=== PATIENT | female | born 1990 | race Caucasian/White ===

== ENCOUNTER → 2017-02-18 | Outpatient (CLI) | payer OTHER ==
[~2017-02-18] MED LIST: ACYC200O2 PO; ALBU2.5V NEB; AZIT-14 PO; AZIT500T4 PO; CEFD300C2 PO; CHOL200040 PO; CHOL500050 PO; CIPR500T3 PO; CLAR500T3 PO; COLC0.6T37 PO; FAMO20TA7 PO; FERR325T10 PO; FERR325T20 PO; FOLI0.4T2 PO; FURO-92 PO; FURO-93 PO; FURO40TA6 PO; HYDR-3240 PO; HYDR-3307 PO; HYDR200T PO; LEVO750T26 PO; LISI-170 PO; LOSA50TA6 PO; METH2.5T PO; METO25TA35 PO; METO25TA91 PO; MYCO500T3 PO; ONDA4TAB7 PO; OXYB5TAB7 PO; PHEN-494 PO; POTA10TA11 PO; POTA20PA PO; POTA20TA14 PO; POTASSIUM CL ER PO; PRED-402 PO; PRED10TA PO; PRED2.5T PO; PRED20TA PO; PRED5TAB PO; PROC10TA78 PO; WARF10TA6 PO; WARF1TAB7 PO; WARF2.5T73 PO; WARF5TAB7 PO; WARF5TAB7 PO-COUM; warfarin PO
[2017-02-18 10:27] LABS: BLOOD UREA NITROGEN 19 mg/dL (7-18)
== END | disposition home or self-care (01) ==
LOC: LAB 09:56
PROVIDERS: ATTEND Internal Medicine Cardiovascular Disease
DX: I31.9 Disease of pericardium, unspecified (principal)
CPT/HCPCS: 36415; 80048

== ENCOUNTER → 2017-03-11 | Outpatient (CLI) | payer OTHER ==
[~2017-03-11] MED LIST changes: -AZIT-14 PO; +AZIT250T89 PO; -AZIT500T4 PO; +AZIT500T77 PO; -CEFD300C2 PO; +CEFD300C37 PO
[2017-03-11 09:17] LABS: BLOOD UREA NITROGEN 22 mg/dL (7-18)
[2017-03-11 09:28] LABS: ASPARTATE AMINO TRANSFERASE 15 U/L (15-37)
== END | disposition home or self-care (01) ==
LOC: LAB 08:39
PROVIDERS: ATTEND Internal Medicine Rheumatology
DX: M32.14 Glomerular disease in systemic lupus erythematosus (principal); Z79.899 Other long term (current) drug therapy
CPT/HCPCS: 36415; 80053; 81001; 82570; 84156; 84443; 85025; 86140; 86160

== ENCOUNTER 2017-03-14 11:21 | Emergency (ER) | payer OTHER ==
[~2017-03-14] VITALS: Ht 165.1 cm; Wt 101.6 kg
[2017-03-14] MEDS ORDERED: SODIUM CHLORIDE FLUSH 10ML SYR IVF ONE (12:00)
[2017-03-14] MEDS ORDERED: PRED-402 PO (12:02)
[2017-03-14 12:55] LABS: ASPARTATE AMINO TRANSFERASE 13 U/L (15-37); BLOOD UREA NITROGEN 17 mg/dL (7-18)
[2017-03-14] MEDS ORDERED: ONDANSETRON 2MG/ML, 2ML ONE (14:45)
[2017-03-14] MEDS ORDERED: MORPHINE SULFATE 4 MG/ML, 1ML ONE (14:45)
[2017-03-14] MEDS ORDERED: ONDANSETRON 2MG/ML, 2ML IVPush ONE (15:00)
[2017-03-14] MEDS ORDERED: morphine SULFATE 10 MG/ML, 1ML IVPush ONE (15:00)
[2017-03-14] MEDS ORDERED: OMNIPAQUE 350 MG/ML, 100ML BOTTLE ONE (15:15)
[2017-03-14 16:01] LABS: IS PT STATUS REG ER OR PRE ER? YES
[2017-03-14 16:15] VITALS: BP 110/79
== END 2017-03-14 16:33 | disposition home or self-care (01) ==
LOC: ED 13:37
DX: N30.00 Acute cystitis without hematuria (principal); R06.00 Dyspnea, unspecified; R10.32 Left lower quadrant pain; R10.31 Right lower quadrant pain; I10 Essential (primary) hypertension; E11.9 Type 2 diabetes mellitus without complications; Z88.1 Allergy status to other antibiotic agents; Z88.6 Allergy status to analgesic agent
CPT/HCPCS: 36415; 71275; 74022; 80053; 81001; 83605; 83880; 84145; 84484; 84703; 85025; 85379; 85610; 85730; 87040; 87086; 93005; 96374; 96375; 99285; J2270; J2405; Q9967

== ENCOUNTER 2017-03-15 06:18 | Inpatient (IN) | payer OTHER ==
[~2017-03-15] VITALS: Ht 165.1 cm; Wt 100.5 kg
[2017-03-15] MEDS ORDERED: SODIUM CHLORIDE 0.9% 1,000 ML IV ONE (06:44)
[2017-03-15] MEDS ORDERED: MORPHINE SULFATE 4 MG/ML, 1ML ONE ×3 (06:55→09:50)
[2017-03-15] MEDS ORDERED: ONDANSETRON 2MG/ML, 2ML ONE (06:56)
[2017-03-15] MEDS ORDERED: ONDANSETRON 2MG/ML, 2ML IVP ONE (07:00)
[2017-03-15 07:15] LABS: BLOOD UREA NITROGEN 15 mg/dL (7-18)
[2017-03-15] MEDS: MORPHINE SULFATE 4 MG/ML, 1ML IVPush PRN ×4 (07:28→15:04)
[2017-03-15 07:32] LABS: IS PT STATUS REG ER OR PRE ER? YES
[2017-03-15 10:45] VITALS: BP 107/74
[2017-03-15 12:48] VITALS: BP 109/77
[2017-03-15] MEDS ORDERED: ONDANSETRON ODT 4 MG PO PRN (13:30)
[2017-03-15] MEDS ORDERED: ONDANSETRON 2MG/ML, 2ML IVPush PRN (13:30)
[2017-03-15] MEDS ORDERED: morphine SULFATE 10 MG/ML, 1ML IVPush PRN (13:30)
[2017-03-15 16:09] LABS: IS PT STATUS REG ER OR PRE ER? NO
[2017-03-15] MEDS: FERROUS SULFATE 325 MG TABLET PO SCH ×2 (17:11→20:16)
[2017-03-15] MEDS ORDERED: WARFARIN 7.5 MG TABLET PO-COUM ONE (18:00)
[2017-03-15 19:20] VITALS: BP 113/77
[2017-03-15] MEDS: CEFDINIR 300 MG CAPSULE PO SCH (20:16)
[2017-03-15] MEDS: METOPROLOL TARTRATE 25 MG TABLET PO SCH (20:16)
[2017-03-15 20:40] LABS: IS PT STATUS REG ER OR PRE ER? NO
[2017-03-16 03:30] VITALS: BP 118/81
[2017-03-16 05:54] LABS: BLOOD UREA NITROGEN 16 mg/dL (7-18)
[2017-03-16 05:57] LABS: ASPARTATE AMINO TRANSFERASE 11 U/L (15-37)
[2017-03-16 07:14] VITALS: BP 128/87
[2017-03-16] MEDS: COLCHICINE 0.6 MG TABLET PO SCH (08:41)
[2017-03-16] MEDS: LOSARTAN 50MG TABLET PO SCH (08:42)
[2017-03-16] MEDS: FERROUS SULFATE 325 MG TABLET PO SCH ×3 (08:42→20:57)
[2017-03-16] MEDS: METOPROLOL TARTRATE 25 MG TABLET PO SCH ×2 (08:42→20:57)
[2017-03-16] MEDS: CEFDINIR 300 MG CAPSULE PO SCH ×2 (08:43→20:57)
[2017-03-16] MEDS: HYDROXYCHLOROQUINE 200 MG TABLET PO SCH (08:43)
[2017-03-16] MEDS: HYDROcodone/APAP 5/325 TABLET PO PRN ×2 (08:44→15:57)
[2017-03-16 12:39] VITALS: BP 111/77
[2017-03-16 19:53] VITALS: BP 111/77
[2017-03-17 01:10] VITALS: BP 145/106
[2017-03-17] MEDS: HYDROcodone/APAP 5/325 TABLET PO PRN (01:15)
[2017-03-17 07:45] VITALS: BP 133/94
[2017-03-17] MEDS: METOPROLOL TARTRATE 25 MG TABLET PO SCH (08:38)
[2017-03-17] MEDS: CEFDINIR 300 MG CAPSULE PO SCH (08:38)
[2017-03-17] MEDS: LOSARTAN 50MG TABLET PO SCH (08:38)
[2017-03-17] MEDS: FERROUS SULFATE 325 MG TABLET PO SCH (08:39)
[2017-03-17] MEDS: HYDROXYCHLOROQUINE 200 MG TABLET PO SCH (08:39)
[2017-03-17] MEDS: COLCHICINE 0.6 MG TABLET PO SCH (08:39)
[2017-03-17] MEDS ORDERED: HYDR-3240 PO (09:51)
[2017-03-17] MEDS ORDERED: COLC0.6T37 PO ×2 (09:51→16:36)
[2017-03-17] MEDS ORDERED: PRED20TA PO (09:51)
== END 2017-03-17 12:12 | disposition home or self-care (01) | DRG 545 ==
LOC: ED 07:42 → EDIP 08:49 → 5SO 10:31
PROVIDERS: ADMIT Hospitalist; ATTEND Hospitalist
DX: M32.9 Systemic lupus erythematosus, unspecified (principal); J96.00 Acute respiratory failure, unspecified whether with hypoxia or hypercapnia; I30.9 Acute pericarditis, unspecified; D68.62 Lupus anticoagulant syndrome; J90 Pleural effusion, not elsewhere classified; N39.0 Urinary tract infection, site not specified; E44.0 Moderate protein-calorie malnutrition; J98.11 Atelectasis; I10 Essential (primary) hypertension; E66.9 Obesity, unspecified; Z79.01 Long term (current) use of anticoagulants; Z82.49 Family history of ischemic heart disease and other diseases of the circulatory system; Z86.718 Personal history of other venous thrombosis and embolism; Z88.1 Allergy status to other antibiotic agents; Z88.5 Allergy status to narcotic agent
CPT/HCPCS: 36415; 71010; 80048; 80053; 82040; 84484; 85025; 85610; 85651; 85730; 86141; 93005; 93306; 96361; 96374; 96375; 96376; J2405; J2270; J7030; J7512; J7517

== ENCOUNTER → 2017-06-14 | Outpatient (CLI) | payer OTHER ==
[~2017-06-14] MED LIST changes: +CEPH-368 PO; +METR500T PO
[2017-06-14 12:34] LABS: HEMATOCRIT 40.5 % (34.6-47.8); HEMOGLOBIN 13.3 g/dL (11.7-16.4); WHITE BLOOD COUNT 6.8 x10^3/uL (3.4-10)
[2017-06-14 12:46] LABS: BLOOD UREA NITROGEN 23 mg/dL (7-18)
[2017-06-14 12:58] LABS: ASPARTATE AMINO TRANSFERASE 13 U/L (15-37); C-REACTIVE PROTEIN, QUANT 0.92 mg/dL (0.02-0.49)
[2017-06-14 13:23] LABS: FERRITIN 82.2 ng/mL (8-252)
== END | disposition home or self-care (01) ==
LOC: LAB 12:10
PROVIDERS: ATTEND Internal Medicine Rheumatology
DX: N18.9 Chronic kidney disease, unspecified (principal); N20.0 Calculus of kidney; L93.0 Discoid lupus erythematosus; Z79.899 Other long term (current) drug therapy
CPT/HCPCS: 36415; 80053; 81001; 82570; 82728; 83540; 83550; 84100; 84156; 84443; 85025; 86140; 86160

== ENCOUNTER → 2018-02-02 | Outpatient (CLI) | payer OTHER ==
[~2018-02-02] MED LIST changes: +AZIT500T5 PO; -AZIT500T77 PO; -FERR325T10 PO; +FERR325T17 PO; +FERR325T18 PO; -FERR325T20 PO; -HYDR200T PO; +HYDR200T72 PO; -PHEN-494 PO; +PHEN-583 PO; +WARF-36 PO; +WARF-36 PO-COUM; -WARF1TAB7 PO; +WARF1TAB74 PO; -WARF5TAB7 PO; -WARF5TAB7 PO-COUM
[2018-02-02 17:21] LABS: MICROSCOPIC AUTO
[2018-02-02 17:26] LABS: BASOPHILS % (AUTO) 0 % (0-1); EOSINOPHILS # (AUTO) 0.01 x10^3/uL (0-0.4); EOSINOPHILS % (AUTO) 0 % (1-7); LYMPHOCYTES # (AUTO) 0.45 x10^3/uL (1-3.4); LYMPHOCYTES % (AUTO) 7 % (22-44); MD NO; MEAN CORPUSCULAR HEMOGLOBIN 29.5 pg (27.0-34.8); MEAN CORPUSCULAR HGB CONC 33.3 g/dL (32.4-35.8); MEAN CORPUSCULAR VOLUME 88.6 fL (80-100); MEAN PLATELET VOLUME 9.3 fL (7.4-10.4); MONOCYTES # (AUTO) 0.23 x10^3/uL (0.2-0.8); MONOCYTES % (AUTO) 4 % (2-9); NEUTROPHILS # (AUTO) 5.48 x10^3/uL (1.8-6.8); NEUTROPHILS % (AUTO) 89 % (42-75); PLATELET COUNT 273 x10^3/uL (130-400); RED BLOOD COUNT 4.74 x10^6/uL (3.82-5.3); RED CELL DISTRIBUTION WIDTH 15.4 % (9.6-15.2)
[2018-02-02 17:27] LABS: HCT (SEDRATE) 41.7 % (34.6-47.8)
[2018-02-02 17:30] LABS: ALBUMIN 3.2 g/dL (3.4-5.0); BILIRUBIN, DIRECT 0.1 mg/dL (0.1-0.2)
[2018-02-02 17:37] LABS: BILIRUBIN,INDIRECT 0.2 mg/dL (0.0-2.0); BILIRUBIN,TOTAL 0.3 mg/dL (0.2-1.0); C-REACTIVE PROTEIN, QUANT 2.6 mg/dL (0.02-0.49); TOTAL PROTEIN 7.1 g/dL (6.4-8.2)
[2018-02-02 17:49] LABS: CULTURE INDICATED? NO
== END | disposition home or self-care (01) ==
LOC: LAB 16:41
PROVIDERS: ATTEND Internal Medicine
DX: M32.10 Systemic lupus erythematosus, organ or system involvement unspecified (principal); R76.0 Raised antibody titer; Z79.899 Other long term (current) drug therapy
CPT/HCPCS: 36415; 80076; 81001; 82570; 84156; 85025; 85651; 86140; 86160; 86225

== ENCOUNTER 2018-05-12 08:09 | Inpatient (IN) | payer OTHER ==
[~2018-05-12] VITALS: Ht 165.1 cm; Wt 120.1 kg
[~2018-05-12 08:09] MED LIST changes: +WARF10TA43 PO; -WARF10TA6 PO
[2018-05-12] MEDS ORDERED: ONDANSETRON ODT 4 MG ONE (09:19)
[2018-05-12] MEDS ORDERED: methylPREDNISolone SOD SUCC 125 MG/2 ML ONE (09:21)
[2018-05-12] MEDS ORDERED: MORPHINE SULFATE 4 MG/ML, 1ML ONE ×3 (09:21→10:34)
[2018-05-12] MEDS: MORPHINE SULFATE 4 MG/ML, 1ML IVPush PRN ×2 (09:22→09:52)
[2018-05-12] MEDS ORDERED: SODIUM CHLORIDE FLUSH 10ML SYR IVF ONE (09:30)
[2018-05-12] MEDS ORDERED: SODIUM CHLORIDE 0.9% 1,000ML IVBOLUS ONE (09:30)
[2018-05-12] MEDS ORDERED: ONDANSETRON ODT 4 MG PO ONE (09:30)
[2018-05-12] MEDS ORDERED: methylPREDNISolone SOD SUCC 125 MG/2 ML IVPush ONE (09:30)
[2018-05-12 09:37] LABS: BASOPHILS % (AUTO) 0 % (0-1); EOSINOPHILS # (AUTO) 0.02 x10^3/uL (0-0.4); EOSINOPHILS % (AUTO) 0 % (1-7); LYMPHOCYTES # (AUTO) 0.92 x10^3/uL (1-3.4); LYMPHOCYTES % (AUTO) 10 % (22-44); MD NO; MEAN CORPUSCULAR HEMOGLOBIN 28.7 pg (27.0-34.8); MEAN CORPUSCULAR HGB CONC 33.4 g/dL (32.4-35.8); MEAN PLATELET VOLUME 9.3 fL (7.4-10.4); MONOCYTES # (AUTO) 0.38 x10^3/uL (0.2-0.8); MONOCYTES % (AUTO) 4 % (2-9); NEUTROPHILS # (AUTO) 8.13 x10^3/uL (1.8-6.8); NEUTROPHILS % (AUTO) 86 % (42-75); PLATELET COUNT 233 x10^3/uL (130-400); RED BLOOD COUNT 4.21 x10^6/uL (3.82-5.3); RED CELL DISTRIBUTION WIDTH 15.4 % (9.6-15.2)
[2018-05-12 09:48] LABS: ALANINE AMINOTRANSFERASE 31 U/L (12-78); ANION GAP 8 mmol/L (5-15); CALCIUM 8.3 mg/dL (8.5-10.1); CHLORIDE 105 mmol/L (98-107); CREATININE 0.85 mg/dL (0.55-1.02)
[2018-05-12 09:52] LABS: ALKALINE PHOSPHATASE 69 U/L (45-117); BILIRUBIN,TOTAL 0.4 mg/dL (0.2-1.0); TOTAL PROTEIN 6.3 g/dL (6.4-8.2)
[2018-05-12 09:57] LABS: MICROSCOPIC INDICATED
[2018-05-12 10:48] LABS: CULTURE INDICATED? NO
[2018-05-12] MEDS ORDERED: CEFTRIAXONE PMX 1GM/50ML 50 ML ONE ×2 (10:50→10:56)
[2018-05-12] MEDS ORDERED: ACETAMINOPHEN 500 MG TABLET ONE (10:50)
[2018-05-12] MEDS ORDERED: AZITHROMYCIN 500 MG in SODIUM CHLORIDE 0.9% 250 ML IV ONE (11:00)
[2018-05-12] MEDS ORDERED: morphine SULFATE 10 MG/ML, 1ML IVPush ONE (11:00)
[2018-05-12] MEDS ORDERED: ACETAMINOPHEN 500 MG TABLET PO ONE (11:00)
[2018-05-12] MEDS ORDERED: CEFTRIAXONE PMX 1GM/50ML 50 ML IVPB ONE (11:00)
[2018-05-12 13:55] VITALS: BP 114/68
[2018-05-12] MEDS: morphine SULFATE 10 MG/ML, 1ML IVPush PRN (13:55)
[2018-05-12] MEDS ORDERED: FUROSEMIDE 20 MG TABLET PO PRN (14:00)
[2018-05-12] MEDS ORDERED: ACETAMINOPHEN 325 MG TABLET PO PRN (14:00)
[2018-05-12] MEDS ORDERED: ONDANSETRON 2MG/ML, 2ML IVPush PRN (14:00)
[2018-05-12] MEDS ORDERED: hydrALAzine 20 MG/ML, 1ML IVPush PRN (14:00)
[2018-05-12 14:11] LABS: FREE T4 (FREE THYROXINE) 1.22 ng/dL (0.76-1.46); THYROID STIMULATING HORMONE 9.21 mIU/L (0.358-3.740)
[2018-05-12 14:29] LABS: INTERNATIONAL NORMALIZED RATIO 3.99 (0.93-1.1); PROTHROMBIN TIME 40.4 Seconds (9.6-11.5)
[2018-05-12] MEDS: AZITHROMYCIN 500 MG in SODIUM CHLORIDE 0.9% 250 ML IV SCH (15:17)
[2018-05-12] MEDS: FERROUS SULFATE 325 MG TABLET PO SCH ×2 (15:25→21:31)
[2018-05-12] MEDS: HYDROcodone/APAP 5/325 TABLET PO PRN (15:25)
[2018-05-12 18:36] VITALS: BP 115/79
[2018-05-12] MEDS ORDERED: KETOROLAC 30 MG/1 ML ONE (21:25)
[2018-05-12] MEDS: POTASSIUM CHLORIDE 20 MEQ TAB.ER.PRT PO SCH (21:30)
[2018-05-12] MEDS ORDERED: KETOROLAC 30 MG/1 ML IVPush PRN (21:30)
[2018-05-12] MEDS: METOPROLOL TARTRATE 25 MG TABLET PO SCH (21:31)
[2018-05-12] MEDS: CEFTRIAXONE PMX 2GM/50ML 50 ML IV SCH (22:45)
[2018-05-13 01:51] VITALS: BP 145/96
[2018-05-13 05:44] LABS: INTERNATIONAL NORMALIZED RATIO 3.76 (0.93-1.1); PROTHROMBIN TIME 38.1 Seconds (9.6-11.5)
[2018-05-13 05:49] LABS: ALBUMIN 2.5 g/dL (3.4-5.0); ANION GAP 9 mmol/L (5-15); CALCIUM 7.9 mg/dL (8.5-10.1); CHLORIDE 107 mmol/L (98-107)
[2018-05-13 05:54] LABS: ALANINE AMINOTRANSFERASE 21 U/L (12-78); ALKALINE PHOSPHATASE 61 U/L (45-117); BILIRUBIN,TOTAL 0.4 mg/dL (0.2-1.0); TOTAL PROTEIN 5.5 g/dL (6.4-8.2)
[2018-05-13 06:09] LABS: BASOPHILS # (AUTO) 0.01 x10^3/uL (0-0.1); BASOPHILS % (AUTO) 0 % (0-1); EOSINOPHILS % (AUTO) 0 % (1-7); LYMPHOCYTES # (AUTO) 0.52 x10^3/uL (1-3.4); LYMPHOCYTES % (AUTO) 12 % (22-44); MD NO; MEAN CORPUSCULAR HGB CONC 32.7 g/dL (32.4-35.8); MEAN CORPUSCULAR VOLUME 85.6 fL (80-100); MEAN PLATELET VOLUME 8.9 fL (7.4-10.4); MONOCYTES # (AUTO) 0.36 x10^3/uL (0.2-0.8); MONOCYTES % (AUTO) 8 % (2-9); NEUTROPHILS % (AUTO) 79 % (42-75); PLATELET COUNT 232 x10^3/uL (130-400); RED BLOOD COUNT 3.68 x10^6/uL (3.82-5.3); RED CELL DISTRIBUTION WIDTH 15.3 % (9.6-15.2)
[2018-05-13 07:26] VITALS: BP 143/97
[2018-05-13] MEDS: LOSARTAN 50MG TABLET PO SCH (08:50)
[2018-05-13] MEDS: HYDROXYCHLOROQUINE 200 MG TABLET PO SCH (08:50)
[2018-05-13] MEDS: HYDROcodone/APAP 5/325 TABLET PO PRN ×3 (08:51→20:18)
[2018-05-13] MEDS: POTASSIUM CHLORIDE 20 MEQ TAB.ER.PRT PO SCH ×2 (08:51→20:14)
[2018-05-13] MEDS: METOPROLOL TARTRATE 25 MG TABLET PO SCH ×2 (08:51→20:14)
[2018-05-13] MEDS: FERROUS SULFATE 325 MG TABLET PO SCH ×3 (08:51→20:14)
[2018-05-13] MEDS: CHOLECALCIFEROL 1,000 UNIT TABLET PO SCH (08:52)
[2018-05-13] MEDS: KETOROLAC 30 MG/1 ML IVPush SCH ×3 (10:10→21:36)
[2018-05-13] MEDS: LACTOBACILLUS CHEW TABLET PO SCH ×3 (11:41→20:14)
[2018-05-13] MEDS: morphine SULFATE 10 MG/ML, 1ML IVPush PRN (11:47)
[2018-05-13 14:18] VITALS: BP 122/81
[2018-05-13] MEDS: AZITHROMYCIN 500 MG in SODIUM CHLORIDE 0.9% 250 ML IV SCH (14:54)
[2018-05-13] MEDS: methylPREDNISolone SOD SUCC 125 MG/2 ML IVPush SCH ×2 (17:07→22:05)
[2018-05-13 20:10] VITALS: BP 118/82
[2018-05-13] MEDS: CEFTRIAXONE PMX 2GM/50ML 50 ML IV SCH (22:06)
[2018-05-14 00:56] VITALS: BP 145/99
[2018-05-14 00:57] VITALS: BP 150/103
[2018-05-14 01:12] VITALS: BP 129/87
[2018-05-14] MEDS: HYDROcodone/APAP 5/325 TABLET PO PRN ×3 (01:17→19:32)
[2018-05-14] MEDS: methylPREDNISolone SOD SUCC 125 MG/2 ML IVPush SCH ×4 (04:55→23:47)
[2018-05-14] MEDS: KETOROLAC 30 MG/1 ML IVPush SCH ×4 (04:55→23:47)
[2018-05-14] MEDS: LACTOBACILLUS CHEW TABLET PO SCH ×4 (04:57→21:18)
[2018-05-14 04:59] LABS: INTERNATIONAL NORMALIZED RATIO 2.91 (0.93-1.1); PROTHROMBIN TIME 29.6 Seconds (9.6-11.5)
[2018-05-14 07:32] VITALS: BP 152/108
[2018-05-14] MEDS: HYDROXYCHLOROQUINE 200 MG TABLET PO SCH (08:16)
[2018-05-14] MEDS: LOSARTAN 50MG TABLET PO SCH (08:17)
[2018-05-14] MEDS: CHOLECALCIFEROL 1,000 UNIT TABLET PO SCH (08:17)
[2018-05-14] MEDS: POTASSIUM CHLORIDE 20 MEQ TAB.ER.PRT PO SCH ×2 (08:17→19:32)
[2018-05-14] MEDS: METOPROLOL TARTRATE 25 MG TABLET PO SCH ×2 (08:17→19:32)
[2018-05-14] MEDS: FERROUS SULFATE 325 MG TABLET PO SCH ×3 (08:21→21:17)
[2018-05-14 14:32] VITALS: BP 119/82
[2018-05-14] MEDS: AZITHROMYCIN 500 MG in SODIUM CHLORIDE 0.9% 250 ML IV SCH (16:01)
[2018-05-14 19:32] VITALS: BP 142/93
[2018-05-14] MEDS: CEFTRIAXONE PMX 2GM/50ML 50 ML IV SCH (23:47)
[2018-05-15 04:25] VITALS: BP 151/109
[2018-05-15] MEDS: KETOROLAC 30 MG/1 ML IVPush SCH ×2 (05:40→11:32)
[2018-05-15] MEDS: methylPREDNISolone SOD SUCC 125 MG/2 ML IVPush SCH ×2 (05:40→11:32)
[2018-05-15 05:42] LABS: PROTHROMBIN TIME 20.5 Seconds (9.6-11.5)
[2018-05-15] MEDS: LACTOBACILLUS CHEW TABLET PO SCH ×3 (05:42→16:00)
[2018-05-15 07:02] VITALS: BP 151/87
[2018-05-15] MEDS: HYDROXYCHLOROQUINE 200 MG TABLET PO SCH (09:38)
[2018-05-15] MEDS: HYDROcodone/APAP 5/325 TABLET PO PRN (09:39)
[2018-05-15] MEDS: FERROUS SULFATE 325 MG TABLET PO SCH ×2 (09:39→16:00)
[2018-05-15] MEDS: POTASSIUM CHLORIDE 20 MEQ TAB.ER.PRT PO SCH (09:39)
[2018-05-15] MEDS: METOPROLOL TARTRATE 25 MG TABLET PO SCH (09:39)
[2018-05-15] MEDS: CHOLECALCIFEROL 1,000 UNIT TABLET PO SCH (09:39)
[2018-05-15] MEDS: LOSARTAN 50MG TABLET PO SCH (09:40)
[2018-05-15] MEDS ORDERED: PRED20TA PO (12:20)
[2018-05-15] MEDS ORDERED: KETO10TA PO (12:20)
[2018-05-15] MEDS ORDERED: ACID1TAB7 PO (12:20)
[2018-05-15] MEDS ORDERED: SIMV20TA PO (12:23)
[2018-05-15 12:43] VITALS: BP 160/106
[2018-05-15] MEDS ORDERED: WARF7.5T PO (12:53)
[2018-05-15] MEDS ORDERED: ENALAPRILAT 1.25 MG/ML, 2ML IV PRN (13:00)
[2018-05-15 15:14] VITALS: BP 152/93
[2018-05-15] MEDS: AZITHROMYCIN 500 MG in SODIUM CHLORIDE 0.9% 250 ML IV SCH (16:00)
== END 2018-05-15 16:10 | disposition home or self-care (01) | DRG 871 ==
LOC: ED 09:12 → EDIP 11:27 → 3NW 12:06 → DCLOUNGE 05-15 16:00
PROVIDERS: ADMIT Internal Medicine; ATTEND Internal Medicine
DX: A41.9 Sepsis, unspecified organism (principal); E43 Unspecified severe protein-calorie malnutrition; J96.00 Acute respiratory failure, unspecified whether with hypoxia or hypercapnia; J18.0 Bronchopneumonia, unspecified organism; J90 Pleural effusion, not elsewhere classified; Z68.41 Body mass index [BMI] 40.0-44.9, adult; M32.9 Systemic lupus erythematosus, unspecified; E11.9 Type 2 diabetes mellitus without complications; E66.01 Morbid (severe) obesity due to excess calories; I10 Essential (primary) hypertension; Z80.41 Family history of malignant neoplasm of ovary; Z79.52 Long term (current) use of systemic steroids; Z86.718 Personal history of other venous thrombosis and embolism; Z82.49 Family history of ischemic heart disease and other diseases of the circulatory system; Z80.52 Family history of malignant neoplasm of bladder; Z87.440 Personal history of urinary (tract) infections; Z87.442 Personal history of urinary calculi; Z88.1 Allergy status to other antibiotic agents; Z88.8 Allergy status to other drugs, medicaments and biological substances; Z90.89 Acquired absence of other organs
CPT/HCPCS: 36415; 71250; 74022; 74150; 80053; 81001; 83605; 83735; 84100; 84145; 84439; 84443; 84703; 85025; 85610; 87040; 96361; 96365; 96375; 96376; 99285; J0456; J0696; J1885; Q0162; J0360; J2270; J2930; J7030; J7050; J7517

== ENCOUNTER → 2018-07-28 | Outpatient (CLI) | payer OTHER ==
[~2018-07-28] MED LIST changes: +ACID1TAB7 PO; +KETO10TA PO; -LOSA50TA6 PO; +LOSA50TA7 PO; -POTA20PA PO; +POTA20PA31 PO; +SIMV20TA PO; +WARF7.5T PO
[2018-07-28 15:41] LABS: HCT (SEDRATE) 38.7 % (34.6-47.8)
[2018-07-28 15:52] LABS: ALANINE AMINOTRANSFERASE 30 U/L (12-78); ALBUMIN 3.1 g/dL (3.4-5.0); BASOPHILS # (AUTO) 0.03 x10^3/uL (0-0.1); BASOPHILS % (AUTO) 1 % (0-1); C-REACTIVE PROTEIN, QUANT 0.82 mg/dL (0.02-0.49); CREATININE 1.05 mg/dL (0.55-1.02); EOSINOPHILS # (AUTO) 0.02 x10^3/uL (0-0.4); EOSINOPHILS % (AUTO) 0 % (1-7); LYMPHOCYTES # (AUTO) 0.96 x10^3/uL (1-3.4); LYMPHOCYTES % (AUTO) 24 % (22-44); MD NO; MEAN CORPUSCULAR HEMOGLOBIN 30.2 pg (27.0-34.8); MEAN CORPUSCULAR HGB CONC 32.9 g/dL (32.4-35.8); MEAN CORPUSCULAR VOLUME 91.6 fL (80-100); MEAN PLATELET VOLUME 9.3 fL (7.4-10.4); MONOCYTES # (AUTO) 0.43 x10^3/uL (0.2-0.8); MONOCYTES % (AUTO) 11 % (2-9); NEUTROPHILS # (AUTO) 2.56 x10^3/uL (1.8-6.8); NEUTROPHILS % (AUTO) 64 % (42-75); PLATELET COUNT 246 x10^3/uL (130-400); RED BLOOD COUNT 4.28 x10^6/uL (3.82-5.3); RED CELL DISTRIBUTION WIDTH 17.3 % (9.6-15.2)
[2018-07-28 15:56] LABS: MICROSCOPIC INDICATED
[2018-07-28 15:58] LABS: CREATININE,URINE RANDOM 96.4 mg/dL
[2018-07-28 16:14] LABS: CULTURE INDICATED? YES
== END | disposition home or self-care (01) ==
LOC: CFH 11:18
PROVIDERS: ATTEND Internal Medicine
DX: M54.2 Cervicalgia (principal); M32.10 Systemic lupus erythematosus, organ or system involvement unspecified; R76.0 Raised antibody titer; Z79.899 Other long term (current) drug therapy
CPT/HCPCS: 36415; 72050; 81001; 82040; 82565; 82570; 84156; 84450; 84460; 85025; 85651; 86140; 86160; 86225; 87086

== ENCOUNTER 2018-09-18 14:47 | Emergency (ER) | payer OTHER ==
[~2018-09-18] VITALS: Ht 165.1 cm; Wt 260.2 kg
[2018-09-18] MEDS ORDERED: ONDANSETRON 2MG/ML, 2ML ONE (15:10)
[2018-09-18] MEDS ORDERED: FAMOTIDINE 20 MG/2 ML ONE (15:10)
[2018-09-18] MEDS ORDERED: SODIUM CHLORIDE 0.9% 1,000ML IVBOLUS ONE ×2 (15:30→17:30)
[2018-09-18] MEDS ORDERED: ONDANSETRON 2MG/ML, 2ML IVPush ONE (15:30)
[2018-09-18] MEDS ORDERED: FAMOTIDINE 20 MG/2 ML IVP ONE (15:30)
[2018-09-18] MEDS ORDERED: SODIUM CHLORIDE FLUSH 10ML SYR IVF ONE (15:30)
[2018-09-18 15:42] LABS: BASOPHILS # (AUTO) 0.09 x10^3/uL (0-0.1); BASOPHILS % (AUTO) 1 % (0-1); EOSINOPHILS # (AUTO) 0.01 x10^3/uL (0-0.4); EOSINOPHILS % (AUTO) 0 % (1-7); LYMPHOCYTES % (AUTO) 11 % (22-44); MD NO; MEAN CORPUSCULAR HEMOGLOBIN 29.1 pg (27.0-34.8); MEAN CORPUSCULAR VOLUME 88.3 fL (80-100); MEAN PLATELET VOLUME 8.9 fL (7.4-10.4); MONOCYTES # (AUTO) 0.58 x10^3/uL (0.2-0.8); MONOCYTES % (AUTO) 9 % (2-9); NEUTROPHILS # (AUTO) 5.24 x10^3/uL (1.8-6.8); NEUTROPHILS % (AUTO) 79 % (42-75); PLATELET COUNT 377 x10^3/uL (130-400); RED BLOOD COUNT 5.01 x10^6/uL (3.82-5.3); RED CELL DISTRIBUTION WIDTH 15.6 % (9.6-15.2)
[2018-09-18 15:47] LABS: ALANINE AMINOTRANSFERASE 18 U/L (12-78); ALBUMIN 3.2 g/dL (3.4-5.0); ANION GAP 12 mmol/L (5-15); CALCIUM 8.1 mg/dL (8.5-10.1); CHLORIDE 103 mmol/L (98-107); CREATININE 0.93 mg/dL (0.55-1.02)
[2018-09-18 15:52] LABS: ALKALINE PHOSPHATASE 71 U/L (45-117); BILIRUBIN,TOTAL 0.5 mg/dL (0.2-1.0); TOTAL PROTEIN 6.9 g/dL (6.4-8.2)
[2018-09-18] MEDS ORDERED: MORPHINE SULFATE 4 MG/ML, 1ML ONE (16:19)
[2018-09-18] MEDS ORDERED: morphine SULFATE 10 MG/ML, 1ML IVPush ONE (16:30)
[2018-09-18 16:42] LABS: CULTURE INDICATED? YES; MICROSCOPIC INDICATED
[2018-09-18 16:57] VITALS: BP 164/92
== END 2018-09-18 17:40 | disposition home or self-care (01) ==
LOC: ED 16:14
DX: N30.00 Acute cystitis without hematuria (principal); I10 Essential (primary) hypertension; E11.9 Type 2 diabetes mellitus without complications; Z90.89 Acquired absence of other organs; Z86.718 Personal history of other venous thrombosis and embolism
CPT/HCPCS: 36415; 80053; 81001; 83690; 84703; 85025; 87086; 96361; 96374; 96375; 99285; J2270; J2405; J3490; J7030

== ENCOUNTER 2018-09-19 19:02 | Inpatient (IN) | payer OTHER ==
[~2018-09-19] VITALS: Ht 165.1 cm; Wt 102.0 kg
[2018-09-19] MEDS ORDERED: SODIUM CHLORIDE FLUSH 10ML SYR IVF ONE (19:30)
[2018-09-19] MEDS ORDERED: SODIUM CHLORIDE 0.9% 1,000ML IVBOLUS ONE ×2 (19:30→22:00)
[2018-09-19] MEDS ORDERED: METOCLOPRAMIDE 5 MG/ML, 2ML IVPush ONE (19:30)
[2018-09-19] MEDS ORDERED: FAMOTIDINE 20 MG/2 ML IVP ONE (19:30)
[2018-09-19 19:36] LABS: BASOPHILS # (AUTO) 0.01 x10^3/uL (0-0.1); BASOPHILS % (AUTO) 0 % (0-1); EOSINOPHILS # (AUTO) 0.02 x10^3/uL (0-0.4); EOSINOPHILS % (AUTO) 0 % (1-7); LYMPHOCYTES # (AUTO) 0.43 x10^3/uL (1-3.4); LYMPHOCYTES % (AUTO) 5 % (22-44); MD NO; MEAN CORPUSCULAR HEMOGLOBIN 29.2 pg (27.0-34.8); MEAN CORPUSCULAR VOLUME 88.3 fL (80-100); MEAN PLATELET VOLUME 8.8 fL (7.4-10.4); MONOCYTES # (AUTO) 0.48 x10^3/uL (0.2-0.8); MONOCYTES % (AUTO) 6 % (2-9); NEUTROPHILS # (AUTO) 7.69 x10^3/uL (1.8-6.8); NEUTROPHILS % (AUTO) 89 % (42-75); PLATELET COUNT 320 x10^3/uL (130-400); RED BLOOD COUNT 4.74 x10^6/uL (3.82-5.3); RED CELL DISTRIBUTION WIDTH 14.9 % (9.6-15.2)
[2018-09-19] MEDS ORDERED: METOCLOPRAMIDE 5 MG/ML, 2ML ONE (19:38)
[2018-09-19] MEDS ORDERED: FAMOTIDINE 20 MG/2 ML ONE (19:38)
[2018-09-19 19:45] LABS: ALANINE AMINOTRANSFERASE 17 U/L (12-78); ANION GAP 11 mmol/L (5-15); CALCIUM 8.2 mg/dL (8.5-10.1); CHLORIDE 104 mmol/L (98-107); CREATININE 1.14 mg/dL (0.55-1.02)
[2018-09-19 19:50] LABS: ALKALINE PHOSPHATASE 67 U/L (45-117); BILIRUBIN,TOTAL 0.4 mg/dL (0.2-1.0); TOTAL PROTEIN 6.6 g/dL (6.4-8.2)
[2018-09-19] MEDS ORDERED: MORPHINE SULFATE 4 MG/ML, 1ML ONE (20:05)
[2018-09-19] MEDS ORDERED: ONDANSETRON 2MG/ML, 2ML ONE (20:05)
[2018-09-19] MEDS: MORPHINE SULFATE 4 MG/ML, 1ML IVPush PRN ×2 (20:22→23:04)
[2018-09-19] MEDS ORDERED: ONDANSETRON 2MG/ML, 2ML IVPush ONE ×2 (20:30→22:00)
[2018-09-19] MEDS ORDERED: OMNIPAQUE 350 MG/ML, 100ML BOTTLE ONE (20:30)
[2018-09-19 21:29] LABS: MICROSCOPIC AUTO
[2018-09-19 21:31] LABS: CULTURE INDICATED? YES
[2018-09-19] MEDS ORDERED: MORPHINE SULFATE 4 MG/ML, 1ML IVPush PRN (22:00)
[2018-09-19 22:52] VITALS: BP 154/105
[2018-09-19] MEDS ORDERED: CEFTRIAXONE PMX 1GM/50ML 50 ML IV SCH (23:00)
[2018-09-19] MEDS ORDERED: TEMAZEPAM 15 MG CAPSULE PO PRN (23:00)
[2018-09-19] MEDS ORDERED: DOCUSATE 100 MG CAPSULE PO PRN (23:00)
[2018-09-19] MEDS ORDERED: hydrALAzine 20 MG/ML, 1ML IVPush PRN (23:00)
[2018-09-19] MEDS: D5%-0.45% NACL 1,000 ML IV SCH (23:03)
[2018-09-19] MEDS ORDERED: FUROSEMIDE 20 MG TABLET PO PRN (23:30)
[2018-09-19] MEDS: ONDANSETRON 2MG/ML, 2ML IVPush PRN (23:35)
[2018-09-19] MEDS: morphine SULFATE 10 MG/ML, 1ML IVPush PRN (23:35)
[2018-09-19 23:49] VITALS: BP 154/105
[2018-09-20] MEDS: PREDNISONE MC SCH ×2 (01:06→08:19)
[2018-09-20 01:23] VITALS: BP 125/84
[2018-09-20] MEDS: morphine SULFATE 10 MG/ML, 1ML IVPush PRN ×5 (03:01→20:07)
[2018-09-20 05:38] LABS: BASOPHILS % (AUTO) 0 % (0-1); EOSINOPHILS # (AUTO) 0.05 x10^3/uL (0-0.4); EOSINOPHILS % (AUTO) 1 % (1-7); LYMPHOCYTES # (AUTO) 0.79 x10^3/uL (1-3.4); LYMPHOCYTES % (AUTO) 11 % (22-44); MD NO; MEAN CORPUSCULAR HEMOGLOBIN 28.7 pg (27.0-34.8); MEAN CORPUSCULAR HGB CONC 32.6 g/dL (32.4-35.8); MEAN CORPUSCULAR VOLUME 88.2 fL (80-100); MEAN PLATELET VOLUME 9.1 fL (7.4-10.4); MONOCYTES # (AUTO) 0.82 x10^3/uL (0.2-0.8); MONOCYTES % (AUTO) 12 % (2-9); NEUTROPHILS # (AUTO) 5.47 x10^3/uL (1.8-6.8); NEUTROPHILS % (AUTO) 77 % (42-75); PLATELET COUNT 300 x10^3/uL (130-400); RED BLOOD COUNT 4.18 x10^6/uL (3.82-5.3); RED CELL DISTRIBUTION WIDTH 15.2 % (9.6-15.2)
[2018-09-20] MEDS: ONDANSETRON 2MG/ML, 2ML IVPush PRN ×3 (05:38→20:16)
[2018-09-20] MEDS: D5%-0.45% NACL 1,000 ML IV SCH ×3 (05:38→20:17)
[2018-09-20 05:39] LABS: ANION GAP 9 mmol/L (5-15); CALCIUM 7.6 mg/dL (8.5-10.1); CHLORIDE 104 mmol/L (98-107); CREATININE 1.05 mg/dL (0.55-1.02)
[2018-09-20 07:45] VITALS: BP 119/80
[2018-09-20] MEDS: FERROUS SULFATE 325 MG TABLET PO SCH ×3 (08:16→20:07)
[2018-09-20] MEDS: COLCHICINE 0.6 MG TABLET PO SCH ×2 (08:16→20:07)
[2018-09-20] MEDS: LACTOBACILLUS CHEW TABLET PO SCH ×3 (08:17→20:06)
[2018-09-20] MEDS: CHOLECALCIFEROL 1,000 UNIT TABLET PO SCH (08:17)
[2018-09-20] MEDS: LOSARTAN 50MG TABLET PO SCH (08:18)
[2018-09-20] MEDS: METOPROLOL TARTRATE 25 MG TABLET PO SCH ×2 (08:18→20:06)
[2018-09-20] MEDS: HYDROXYCHLOROQUINE 200 MG TABLET PO SCH (08:19)
[2018-09-20] MEDS ORDERED: PREDNISONE 40 MG PO SCH (09:00)
[2018-09-20] MEDS ORDERED: POTASSIUM CHLORIDE 20 MEQ TAB.ER.PRT PO SCH (09:00)
[2018-09-20] MEDS ORDERED: MAGNESIUM SULFATE PMX 2GM/50ML 50 ML IV ONE (12:00)
[2018-09-20] MEDS: CEFTRIAXONE PMX 2GM/50ML 50 ML IV SCH (12:28)
[2018-09-20 12:50] VITALS: BP 101/68
[2018-09-20] MEDS ORDERED: PROMETHAZINE 12.5 MG SUPP PR PRN (15:00)
[2018-09-20] MEDS: POTASSIUM CHLORIDE 20 MEQ TAB.ER.PRT PO SCH (16:21)
[2018-09-20 17:16] LABS: INTERNATIONAL NORMALIZED RATIO 1.2 (0.93-1.1); PROTHROMBIN TIME 12.4 Seconds (9.6-11.5)
[2018-09-20] MEDS ORDERED: WARFARIN 2.5 MG TABLET PO-COUM ONE (18:00)
[2018-09-20] MEDS ORDERED: WARFARIN 10 MG TABLET PO-COUM ONE (18:00)
[2018-09-20] MEDS ORDERED: WARFARIN 7.5 MG TABLET PO-COUM SCH (18:00)
[2018-09-20 19:34] VITALS: BP 148/106
[2018-09-20] MEDS: SIMVASTATIN 20 MG TABLET PO SCH (20:09)
[2018-09-20] MEDS: KETOROLAC 30 MG/1 ML IVPush PRN (21:27)
[2018-09-21 03:59] VITALS: BP 131/87
[2018-09-21] MEDS: morphine SULFATE 10 MG/ML, 1ML IVPush PRN ×2 (04:14→20:35)
[2018-09-21] MEDS: D5%-0.45% NACL 1,000 ML IV SCH ×2 (05:31→12:40)
[2018-09-21 06:17] LABS: BASOPHILS % (AUTO) 0 % (0-1); EOSINOPHILS # (AUTO) 0.08 x10^3/uL (0-0.4); EOSINOPHILS % (AUTO) 2 % (1-7); LYMPHOCYTES # (AUTO) 0.64 x10^3/uL (1-3.4); LYMPHOCYTES % (AUTO) 15 % (22-44); MD NO; MEAN CORPUSCULAR HEMOGLOBIN 29.2 pg (27.0-34.8); MEAN CORPUSCULAR HGB CONC 33.2 g/dL (32.4-35.8); MEAN CORPUSCULAR VOLUME 87.9 fL (80-100); MEAN PLATELET VOLUME 8.9 fL (7.4-10.4); MONOCYTES # (AUTO) 0.73 x10^3/uL (0.2-0.8); MONOCYTES % (AUTO) 17 % (2-9); NEUTROPHILS # (AUTO) 2.81 x10^3/uL (1.8-6.8); NEUTROPHILS % (AUTO) 66 % (42-75); PLATELET COUNT 243 x10^3/uL (130-400); RED BLOOD COUNT 4.11 x10^6/uL (3.82-5.3); RED CELL DISTRIBUTION WIDTH 14.6 % (9.6-15.2)
[2018-09-21 06:26] LABS: ANION GAP 9 mmol/L (5-15); CALCIUM 7.6 mg/dL (8.5-10.1); CHLORIDE 104 mmol/L (98-107); CREATININE 0.96 mg/dL (0.55-1.02)
[2018-09-21 06:34] LABS: INTERNATIONAL NORMALIZED RATIO 1.3 (0.93-1.1); PROTHROMBIN TIME 13.5 Seconds (9.6-11.5)
[2018-09-21 08:20] VITALS: BP 109/73
[2018-09-21] MEDS: LOSARTAN 50MG TABLET PO SCH (09:00)
[2018-09-21] MEDS: KETOROLAC 30 MG/1 ML IVPush PRN (09:29)
[2018-09-21] MEDS: HYDROXYCHLOROQUINE 200 MG TABLET PO SCH (09:34)
[2018-09-21] MEDS: POTASSIUM CHLORIDE 20 MEQ TAB.ER.PRT PO SCH ×2 (09:35→17:10)
[2018-09-21] MEDS: TAMSULOSIN 0.4 MG CAP.ER.24H PO SCH (09:36)
[2018-09-21] MEDS: COLCHICINE 0.6 MG TABLET PO SCH ×2 (09:36→20:37)
[2018-09-21] MEDS: FERROUS SULFATE 325 MG TABLET PO SCH ×3 (09:37→20:35)
[2018-09-21] MEDS: LACTOBACILLUS CHEW TABLET PO SCH ×3 (09:43→20:35)
[2018-09-21] MEDS: METOPROLOL TARTRATE 25 MG TABLET PO SCH ×2 (09:43→20:35)
[2018-09-21] MEDS: CHOLECALCIFEROL 1,000 UNIT TABLET PO SCH (09:44)
[2018-09-21] MEDS: CEFTRIAXONE PMX 2GM/50ML 50 ML IV SCH (12:40)
[2018-09-21 15:07] VITALS: BP 129/86
[2018-09-21] MEDS ORDERED: WARFARIN 10 MG TABLET PO-COUM SCH (18:00)
[2018-09-21 20:17] VITALS: BP 131/84
[2018-09-21] MEDS: SIMVASTATIN 20 MG TABLET PO SCH (20:37)
[2018-09-22 02:00] VITALS: BP 132/79
[2018-09-22] MEDS: D5%-0.45% NACL 1,000 ML IV SCH ×2 (02:02→12:10)
[2018-09-22 05:55] LABS: INTERNATIONAL NORMALIZED RATIO 2.11 (0.93-1.1); PROTHROMBIN TIME 21.6 Seconds (9.6-11.5)
[2018-09-22 05:58] LABS: ANION GAP 9 mmol/L (5-15); CHLORIDE 109 mmol/L (98-107); CREATININE 0.71 mg/dL (0.55-1.02)
[2018-09-22 06:05] LABS: MEAN CORPUSCULAR HGB CONC 32.8 g/dL (32.4-35.8); MEAN CORPUSCULAR VOLUME 88.4 fL (80-100); MEAN PLATELET VOLUME 9.1 fL (7.4-10.4); PLATELET COUNT 238 x10^3/uL (130-400); RED BLOOD COUNT 4.14 x10^6/uL (3.82-5.3); RED CELL DISTRIBUTION WIDTH 14.8 % (9.6-15.2)
[2018-09-22 06:32] LABS: BASOPHILS # (AUTO) 0.01 x10^3/uL (0-0.1); BASOPHILS % (AUTO) 0 % (0-1); EOSINOPHILS # (AUTO) 0.07 x10^3/uL (0-0.4); EOSINOPHILS % (AUTO) 3 % (1-7); LYMPHOCYTES # (AUTO) 0.77 x10^3/uL (1-3.4); LYMPHOCYTES % (AUTO) 31 % (22-44); MD SCAN; MONOCYTES # (AUTO) 0.43 x10^3/uL (0.2-0.8); MONOCYTES % (AUTO) 17 % (2-9); NEUTROPHILS # (AUTO) 1.25 x10^3/uL (1.8-6.8); NEUTROPHILS % (AUTO) 50 % (42-75)
[2018-09-22 08:22] VITALS: BP 127/90
[2018-09-22] MEDS: morphine SULFATE 10 MG/ML, 1ML IVPush PRN (08:26)
[2018-09-22] MEDS: CHOLECALCIFEROL 1,000 UNIT TABLET PO SCH (08:28)
[2018-09-22] MEDS: FERROUS SULFATE 325 MG TABLET PO SCH (08:31)
[2018-09-22] MEDS: COLCHICINE 0.6 MG TABLET PO SCH (08:32)
[2018-09-22] MEDS: TAMSULOSIN 0.4 MG CAP.ER.24H PO SCH (08:32)
[2018-09-22] MEDS: LACTOBACILLUS CHEW TABLET PO SCH (08:33)
[2018-09-22] MEDS: LOSARTAN 50MG TABLET PO SCH (08:33)
[2018-09-22] MEDS: POTASSIUM CHLORIDE 20 MEQ TAB.ER.PRT PO SCH (08:34)
[2018-09-22] MEDS: METOPROLOL TARTRATE 25 MG TABLET PO SCH (08:35)
[2018-09-22] MEDS: HYDROXYCHLOROQUINE 200 MG TABLET PO SCH (08:35)
[2018-09-22] MEDS: CEFTRIAXONE PMX 2GM/50ML 50 ML IV SCH (12:10)
[2018-09-22] MEDS ORDERED: IBUP-1484 PO ×2 (12:21→17:25)
[2018-09-22] MEDS ORDERED: PRED20TA PO (12:21)
[2018-09-22] MEDS ORDERED: WARF10TA PO-COUM (12:22)
[2018-09-22] MEDS ORDERED: METHENAMINE PO (14:43)
[2018-09-22] MEDS ORDERED: WARFARIN 10 MG TABLET PO-COUM ONE (18:00)
== END 2018-09-22 14:55 | disposition home or self-care (01) | DRG 690 ==
LOC: ED 19:15 → EDIP 21:44 → 3NE 22:30 → DCLOUNGE 09-22 14:33
PROVIDERS: ADMIT Hospitalist; ATTEND Hospitalist
DX: N12 Tubulo-interstitial nephritis, not specified as acute or chronic (principal); I31.3 Pericardial effusion (noninflammatory); N30.10 Interstitial cystitis (chronic) without hematuria; E66.01 Morbid (severe) obesity due to excess calories; E86.0 Dehydration; E83.42 Hypomagnesemia; E11.9 Type 2 diabetes mellitus without complications; I10 Essential (primary) hypertension; G89.4 Chronic pain syndrome; E87.6 Hypokalemia; K76.0 Fatty (change of) liver, not elsewhere classified; R00.0 Tachycardia, unspecified; G43.909 Migraine, unspecified, not intractable, without status migrainosus; M54.5 Low back pain; M32.9 Systemic lupus erythematosus, unspecified; Z79.01 Long term (current) use of anticoagulants; Z79.52 Long term (current) use of systemic steroids; Z86.19 Personal history of other infectious and parasitic diseases; Z86.718 Personal history of other venous thrombosis and embolism; Z87.440 Personal history of urinary (tract) infections; Z87.442 Personal history of urinary calculi; Z90.49 Acquired absence of other specified parts of digestive tract; Z68.36 Body mass index [BMI] 36.0-36.9, adult; Z88.1 Allergy status to other antibiotic agents
CPT/HCPCS: 36415; 84145; 99285; J3490; 74177; 76770; 80048; 80053; 81001; 83690; 83735; 84100; 84703; 85025; 85610; 87086; 96374; 96375; G0378; J0696; J1885; J2405; Q9967; J2270; J2765; J3475; J7030; J7512; J7517

== ENCOUNTER → 2018-09-25 | Outpatient (CLI) | payer OTHER ==
[~2018-09-25] MED LIST changes: +IBUP-1484 PO; +METHENAMINE PO; +WARF10TA PO-COUM
[2018-09-25 17:04] LABS: BASOPHILS # (AUTO) 0.09 x10^3/uL (0-0.1); BASOPHILS % (AUTO) 1 % (0-1); EOSINOPHILS # (AUTO) 0.02 x10^3/uL (0-0.4); EOSINOPHILS % (AUTO) 0 % (1-7); LYMPHOCYTES % (AUTO) 12 % (22-44); MD NO; MEAN CORPUSCULAR HEMOGLOBIN 28.6 pg (27.0-34.8); MEAN CORPUSCULAR HGB CONC 32.6 g/dL (32.4-35.8); MEAN CORPUSCULAR VOLUME 87.7 fL (80-100); MEAN PLATELET VOLUME 8.8 fL (7.4-10.4); MONOCYTES % (AUTO) 6 % (2-9); NEUTROPHILS # (AUTO) 5.21 x10^3/uL (1.8-6.8); NEUTROPHILS % (AUTO) 80 % (42-75); PLATELET COUNT 281 x10^3/uL (130-400); RED BLOOD COUNT 4.86 x10^6/uL (3.82-5.3)
[2018-09-25 17:08] LABS: ANION GAP 10 mmol/L (5-15); CALCIUM 8.4 mg/dL (8.5-10.1); CHLORIDE 110 mmol/L (98-107); CREATININE 0.88 mg/dL (0.55-1.02)
== END | disposition home or self-care (01) ==
LOC: LAB 16:39
PROVIDERS: ATTEND Physician Assistant
DX: M32.9 Systemic lupus erythematosus, unspecified (principal)
CPT/HCPCS: 36415; 80048; 85025

== ENCOUNTER 2019-04-02 07:42 | Emergency (ER) | payer OTHER ==
[~2019-04-02] VITALS: Ht 165.1 cm; Wt 106.8 kg
[~2019-04-02 07:42] MED LIST changes: +LOSA50TA14 PO; -LOSA50TA7 PO; +WARF2.5T32 PO; -WARF2.5T73 PO
[2019-04-02] MEDS ORDERED: SODIUM CHLORIDE 0.9% 1,000ML IVBOLUS ONE (08:00)
[2019-04-02] MEDS ORDERED: METOCLOPRAMIDE 5 MG/ML, 2ML IVPush ONE (08:00)
[2019-04-02] MEDS ORDERED: DIPHENHYDRAMINE 50 MG/ML, 1ML IVPush ONE (08:00)
[2019-04-02] MEDS ORDERED: KETOROLAC 30 MG/1 ML IVPush ONE (08:00)
[2019-04-02] MEDS ORDERED: SODIUM CHLORIDE FLUSH 10ML SYR IVF ONE (08:00)
[2019-04-02] MEDS ORDERED: DIPHENHYDRAMINE 50 MG/ML, 1ML ONE (08:19)
[2019-04-02] MEDS ORDERED: METOCLOPRAMIDE 5 MG/ML, 2ML ONE (08:19)
[2019-04-02] MEDS ORDERED: KETOROLAC 30 MG/1 ML ONE (08:19)
--- NOTE | 2019-04-02 08:32 | NUR ---
PT PRESENTED TO ED AFTER VOMITTING X 3 DAYS. PT WITH HX: LUPUS. PT STATES THAT THESE SYMPTOMS OCCUR WHEN SHE HAS EXACERBATIONS OF LUPUS. ASSESSMENT COMPLETED. IV STARTED AND MEDS GIVEN. PT PLACED ON BP AND CONT. PULSE OXIMETER. CALL LIGHT IN REACH
[2019-04-02] MEDS ORDERED: PRED5TAB PO (08:37)
[2019-04-02 08:40] LABS: ALBUMIN 3.4 g/dL (3.4-5.0); ANION GAP 8 mmol/L (5-15); CALCIUM 8.5 mg/dL (8.5-10.1); CHLORIDE 107 mmol/L (98-107)
[2019-04-02 08:43] LABS: ALANINE AMINOTRANSFERASE 22 U/L (12-78); ALKALINE PHOSPHATASE 108 U/L (45-117); CREATININE 0.96 mg/dL (0.55-1.02); TOTAL PROTEIN 7.3 g/dL (6.4-8.2)
[2019-04-02 08:54] LABS: MEAN CORPUSCULAR HEMOGLOBIN 26.4 pg (27.0-34.8); MEAN CORPUSCULAR VOLUME 82.7 fL (80-100); MEAN PLATELET VOLUME 9.4 fL (7.4-10.4); PLATELET COUNT 97 x10^3/uL (130-400); RED BLOOD COUNT 5.05 x10^6/uL (3.82-5.3); RED CELL DISTRIBUTION WIDTH 17.2 % (9.6-15.2)
[2019-04-02 08:55] LABS: BASOPHILS % (AUTO) 0 % (0-1); EOSINOPHILS % (AUTO) 0 % (1-7); LYMPHOCYTES # (AUTO) 0.49 x10^3/uL (1-3.4); LYMPHOCYTES % (AUTO) 16 % (22-44); MD SCAN; MONOCYTES # (AUTO) 0.18 x10^3/uL (0.2-0.8); MONOCYTES % (AUTO) 6 % (2-9); NEUTROPHILS # (AUTO) 2.33 x10^3/uL (1.8-6.8); NEUTROPHILS % (AUTO) 78 % (42-75)
[2019-04-02] MEDS ORDERED: DIAZEPAM 5 MG/ML, 10ML VIAL IV ONE (09:00)
[2019-04-02] MEDS ORDERED: ACETAMINOPHEN 500 MG TABLET PO ONE (09:00)
[2019-04-02] MEDS ORDERED: ACETAMINOPHEN 500 MG TABLET ONE (09:25)
--- NOTE | 2019-04-02 09:30 | NUR ---
PT REFUSING TYLENOL AT THIS TIME
--- NOTE | 2019-04-02 09:50 | NUR ---
TASK RN: PT MED NOTED FOR CONTINUED TERAN PAIN 04/16. CALL LIGHT W/I REACH AND PT VERBALIZES UNDERSTANDING TO CALL FOR ASSISTANCE IF SHE NEEDS TO GET OOB.
[2019-04-02 09:54] LABS: INTERNATIONAL NORMALIZED RATIO 1.03 (0.93-1.1); PROTHROMBIN TIME 10.8 Seconds (9.6-11.5)
--- NOTE | 2019-04-02 10:07 | NUR ---
PT GIVEN PO FLUID CHALLENGE
[2019-04-02 10:24] VITALS: BP 134/95
== END 2019-04-02 10:35 | disposition home or self-care (01) ==
LOC: ED 09:23
DX: G44.211 Episodic tension-type headache, intractable (principal); G43.909 Migraine, unspecified, not intractable, without status migrainosus; R11.2 Nausea with vomiting, unspecified; E86.0 Dehydration; I10 Essential (primary) hypertension; E11.21 Type 2 diabetes mellitus with diabetic nephropathy
CPT/HCPCS: 36415; 80053; 83690; 85025; 85610; 93005; 96361; 96374; 96375; 99284; J1200; J1885; J2765; J7030

== ENCOUNTER 2019-05-09 10:29 | Inpatient (IN) | payer OTHER ==
[~2019-05-09] VITALS: Ht 165.1 cm; Wt 109.8 kg
[2019-05-09] MEDS ORDERED: HYDR200T72 PO (11:29)
[2019-05-09] MEDS ORDERED: ONDANSETRON 2MG/ML, 2ML ONE (11:44)
[2019-05-09] MEDS ORDERED: ONDANSETRON ODT 4 MG ONE (11:44)
[2019-05-09] MEDS ORDERED: ACETAMINOPHEN 325 MG TABLET ONE (11:44)
--- NOTE | 2019-05-09 11:49 | NUR ---
PATIENT AND MOTHER UPDATED ON PLAN OF CARE. PATIENT IV INITIATED. PATIENT MEDICATED AND LAB IS AT DRAWING BLOOD
[2019-05-09] MEDS ORDERED: ONDANSETRON ODT 4 MG PO ONE (12:00)
[2019-05-09] MEDS ORDERED: SODIUM CHLORIDE FLUSH 10ML SYR IVF ONE (12:00)
[2019-05-09] MEDS ORDERED: SODIUM CHLORIDE 0.9% 1,000ML IVBOLUS ONE (12:00)
[2019-05-09] MEDS ORDERED: ACETAMINOPHEN 325 MG TABLET PO ONE (12:00)
--- NOTE | 2019-05-09 12:03 | NUR ---
patietn still c/o nausea. provider notified and plan to give reglan
[2019-05-09 12:12] LABS: MEAN CORPUSCULAR HEMOGLOBIN 27.6 pg (27.0-34.8); MEAN CORPUSCULAR HGB CONC 33.4 g/dL (32.4-35.8); MEAN CORPUSCULAR VOLUME 82.6 fL (80-100); RED BLOOD COUNT 4.86 x10^6/uL (3.82-5.3); RED CELL DISTRIBUTION WIDTH 16.7 % (9.6-15.2)
[2019-05-09] MEDS ORDERED: METOCLOPRAMIDE 5 MG/ML, 2ML ONE (12:20)
[2019-05-09 12:23] LABS: ALANINE AMINOTRANSFERASE 13 U/L (12-78); ALBUMIN 3.3 g/dL (3.4-5.0); ANION GAP 9 mmol/L (5-15); CALCIUM 8.3 mg/dL (8.5-10.1); CHLORIDE 104 mmol/L (98-107); CREATININE 1.02 mg/dL (0.55-1.02)
[2019-05-09 12:28] LABS: ALKALINE PHOSPHATASE 86 U/L (45-117); BILIRUBIN,TOTAL 0.6 mg/dL (0.2-1.0); TOTAL PROTEIN 7.3 g/dL (6.4-8.2)
[2019-05-09] MEDS ORDERED: MORPHINE SULFATE 4 MG/ML, 1ML ONE ×2 (12:30→14:47)
[2019-05-09] MEDS ORDERED: METOCLOPRAMIDE 5 MG/ML, 2ML IVPush ONE (12:30)
[2019-05-09] MEDS: MORPHINE SULFATE 4 MG/ML, 1ML IVPush PRN ×2 (12:33→14:49)
--- NOTE | 2019-05-09 12:38 | NUR ---
BREAK RN: PT MEDICATED ORDERED FOR CONT NAUSEA. PT C/O GENERALIZED CHRONIC BODY PAIN 8/10 FROM BEING UNABLE TO KEEP DOWN HER USUAL PAIN MEDICATION. DISCUSSED WITH CHAYO CARNES AND MEDICATED ORDERED FOR PAIN. PT UP TO RESTROOM. STEADY UPON AMBUALTION. URINE SAMPLE OBTAINED AND SENT TO LAB. PT BACK TO [facility]. PT ON CONT BP AND O2 MONITORS. MOTHER AT BEDSIDE. PT AND MOTHER AWARE THAT WE ARE WAITING FOR LAB/IMAGING RESULTS. CALL LIGHT WITHIN REACH.
[2019-05-09 12:48] LABS: INTERNATIONAL NORMALIZED RATIO 1.58 (0.93-1.1); PROTHROMBIN TIME 16.3 Seconds (9.6-11.5)
[2019-05-09 12:58] LABS: BASOPHILS % (AUTO) 0 % (0-1); EOSINOPHILS # (AUTO) 0.01 x10^3/uL (0-0.4); EOSINOPHILS % (AUTO) 0 % (1-7); LYMPHOCYTES % (AUTO) 19 % (22-44); MEAN PLATELET VOLUME 9.4 fL (7.4-10.4); MONOCYTES # (AUTO) 0.18 x10^3/uL (0.2-0.8); MONOCYTES % (AUTO) 7 % (2-9); NEUTROPHILS # (AUTO) 1.97 x10^3/uL (1.8-6.8); NEUTROPHILS % (AUTO) 74 % (42-75); PLATELET COUNT 78 x10^3/uL (130-400)
[2019-05-09 13:00] LABS: MD SCAN
--- NOTE | 2019-05-09 13:00 | NUR ---
[place] PLACED ON 2 L NC FOR SPO2 OF 87% AFTER MORPHINE ADMIN
[2019-05-09 13:01] LABS: MICROSCOPIC INDICATED
[2019-05-09 13:18] LABS: CULTURE INDICATED? YES
[2019-05-09 14:09] LABS: MICROSCOPIC INDICATED
--- NOTE | 2019-05-09 14:10 | NUR ---
MINI CATH UA SPECIMEN OBTAINED
[2019-05-09 14:29] LABS: CULTURE INDICATED? NO
--- NOTE | 2019-05-09 14:46 | NUR ---
PATIENT UPDATED ON PLAN OF CARE AND REQUESTS MORE PAIN MEDS
[2019-05-09] MEDS ORDERED: OMNIPAQUE 350 MG/ML, 100ML BOTTLE ONE (15:28)
--- NOTE | 2019-05-09 15:48 | NUR ---
[place] PLACED IN RECHECK
--- NOTE | 2019-05-09 16:38 | NUR ---
PATIENT PLAN OF CARE TO BE DETERMINED. PATIENT AWARE. VSS. PATIENT REPORTS PAIN IS UNDER CONTROL AT THIS TIME
[2019-05-09] MEDS ORDERED: PROMETHAZINE 25 MG/ML, 1ML IM ONE (17:00)
[2019-05-09] MEDS ORDERED: ENOXAPARIN 100 MG/ML SQ ONE (17:30)
--- NOTE | 2019-05-09 17:41 | NUR ---
REPORT TO JEFFRY KELLER
[2019-05-09 18:08] VITALS: BP 115/80
[2019-05-09] MEDS ORDERED: ACETAMINOPHEN 325 MG TABLET PO PRN (20:00)
[2019-05-09] MEDS ORDERED: DOCUSATE 100 MG CAPSULE PO PRN (20:00)
[2019-05-09] MEDS ORDERED: hydrALAzine 20 MG/ML, 1ML IVPush PRN (20:00)
[2019-05-09] MEDS ORDERED: LIDODERM 5% PATCH TD PRN (20:00)
[2019-05-09] MEDS ORDERED: Enoxaparin 1 mg/kg protocol SQ SCH (20:00)
[2019-05-09 20:09] VITALS: BP 137/86
[2019-05-09] MEDS ORDERED: MAALOX/HYOSCYAMINE/LIDOCAINE 45 ML BTL PO ONE (20:30)
[2019-05-09] MEDS ORDERED: PANTOPRAZOLE 40 MG IV IVPush SCH (20:30)
[2019-05-09] MEDS ORDERED: WARFARIN 10 MG TABLET PO-COUM ONE (21:00)
[2019-05-09] MEDS: morphine SULFATE 10 MG/ML, 1ML IVPush PRN (21:03)
[2019-05-09] MEDS: SODIUM CHLORIDE 0.9% 1,000 ML IV SCH (21:03)
[2019-05-09] MEDS: methylPREDNISolone SOD SUCC 40 MG/ML IV SCH (22:43)
[2019-05-10] MEDS: morphine SULFATE 10 MG/ML, 1ML IVPush PRN ×7 (00:10→19:44)
[2019-05-10] MEDS: ONDANSETRON 2MG/ML, 2ML IVPush PRN ×2 (00:10→06:08)
[2019-05-10 01:45] VITALS: BP 115/79
[2019-05-10] MEDS: SODIUM CHLORIDE 0.9% 1,000 ML IV SCH ×3 (02:57→19:49)
[2019-05-10 04:52] LABS: MEAN CORPUSCULAR HEMOGLOBIN 27.8 pg (27.0-34.8); MEAN CORPUSCULAR HGB CONC 33.6 g/dL (32.4-35.8); MEAN CORPUSCULAR VOLUME 82.7 fL (80-100); PLATELET COUNT 78 x10^3/uL (130-400); RED CELL DISTRIBUTION WIDTH 16.9 % (9.6-15.2)
[2019-05-10 04:59] LABS: ANION GAP 8 mmol/L (5-15); CALCIUM 7.6 mg/dL (8.5-10.1); CHLORIDE 106 mmol/L (98-107); CREATININE 1.17 mg/dL (0.55-1.02)
[2019-05-10 05:41] LABS: MD YES
[2019-05-10 05:44] LABS: BAND#(MANUAL) 0.06 x10^3/uL; BANDS%(MANUAL) 3 % (0-7); LYMPH#(MANUAL) 0.21 x10^3/uL (1-3.4); LYMPHS% (MANUAL) 10 % (22-44); MONOS#(MANUAL) 0.06 x10^3/uL (0.3-2.7); MONOS% (MANUAL) 3 % (2-9); SEG#(MANUAL) 1.76 x10^3/uL (1.8-6.8); SEGS% (MANUAL) 84 % (42-75)
[2019-05-10 05:45] LABS: <PLATELET ESTIMATE> DECREASED; <PLT MORPHOLOGY> NORMAL PLT MORPH; ANISOCYTOSIS 1+
[2019-05-10] MEDS: ENOXAPARIN 100 MG/ML SQ SCH ×2 (06:12→16:38)
[2019-05-10 07:59] VITALS: BP 125/75
[2019-05-10] MEDS ORDERED: MAALOX/HYOSCYAMINE/LIDOCAINE 45 ML BTL PO PRN (08:30)
[2019-05-10] MEDS: HYDROXYCHLOROQUINE 200 MG TABLET PO SCH ×3 (08:53→19:50)
[2019-05-10] MEDS ORDERED: PANTOPRAZOLE 40 MG IV IVPush SCH (09:00)
[2019-05-10] MEDS: methylPREDNISolone SOD SUCC 40 MG/ML IV SCH (10:30)
[2019-05-10 13:40] VITALS: BP 119/82
[2019-05-10 14:30] LABS: INTERNATIONAL NORMALIZED RATIO 3.81 (0.93-1.1)
[2019-05-10] MEDS: PANTOPROZOLE 40MG TABLET PO SCH (17:39)
[2019-05-10] MEDS ORDERED: WARFARIN 7.5 MG TABLET PO-COUM ONE (18:00)
[2019-05-10 19:30] VITALS: BP 124/76
[2019-05-10] MEDS: METOPROLOL TARTRATE 25 MG TABLET PO SCH (19:44)
[2019-05-11] MEDS: morphine SULFATE 10 MG/ML, 1ML IVPush PRN ×7 (00:47→23:32)
[2019-05-11 03:21] VITALS: BP 144/89
[2019-05-11 04:32] LABS: INTERNATIONAL NORMALIZED RATIO 5.33 (0.93-1.1); PROTHROMBIN TIME 52.5 Seconds (9.6-11.5)
[2019-05-11] MEDS: SODIUM CHLORIDE 0.9% 1,000 ML IV SCH ×3 (04:59→20:17)
[2019-05-11] MEDS: ENOXAPARIN 100 MG/ML SQ SCH (05:09)
[2019-05-11] MEDS: PANTOPROZOLE 40MG TABLET PO SCH ×2 (06:39→16:59)
[2019-05-11 07:07] VITALS: BP 128/87
[2019-05-11] MEDS: HYDROXYCHLOROQUINE 200 MG TABLET PO SCH ×4 (09:00→20:49)
[2019-05-11] MEDS: METOPROLOL TARTRATE 25 MG TABLET PO SCH ×2 (09:05→20:49)
[2019-05-11] MEDS ORDERED: KETOROLAC 30 MG/1 ML IVPush ONE (11:00)
[2019-05-11 13:58] VITALS: BP 128/86
[2019-05-11 14:32] LABS: MEAN CORPUSCULAR HEMOGLOBIN 27.7 pg (27.0-34.8); MEAN CORPUSCULAR VOLUME 83.9 fL (80-100); MEAN PLATELET VOLUME 8.7 fL (7.4-10.4); PLATELET COUNT 97 x10^3/uL (130-400); RED BLOOD COUNT 3.78 x10^6/uL (3.82-5.3); RED CELL DISTRIBUTION WIDTH 16.7 % (9.6-15.2)
[2019-05-11 14:34] LABS: BASOPHILS # (AUTO) 0.01 x10^3/uL (0-0.1); BASOPHILS % (AUTO) 0 % (0-1); EOSINOPHILS % (AUTO) 0 % (1-7); LYMPHOCYTES # (AUTO) 0.31 x10^3/uL (1-3.4); LYMPHOCYTES % (AUTO) 7 % (22-44); MD SCAN; MONOCYTES # (AUTO) 0.24 x10^3/uL (0.2-0.8); MONOCYTES % (AUTO) 6 % (2-9); NEUTROPHILS % (AUTO) 87 % (42-75)
[2019-05-11] MEDS ORDERED: WARFARIN 7.5 MG TABLET PO-COUM SCH (18:00)
[2019-05-11 19:07] VITALS: BP 121/84
[2019-05-12 02:12] VITALS: BP 132/88
[2019-05-12] MEDS: SODIUM CHLORIDE 0.9% 1,000 ML IV SCH ×2 (04:26→11:42)
[2019-05-12] MEDS: morphine SULFATE 10 MG/ML, 1ML IVPush PRN ×2 (04:26→07:42)
[2019-05-12 05:16] LABS: INTERNATIONAL NORMALIZED RATIO 4.62 (0.93-1.1); PROTHROMBIN TIME 45.7 Seconds (9.6-11.5)
[2019-05-12 05:20] LABS: ANION GAP 8 mmol/L (5-15); CALCIUM 7.6 mg/dL (8.5-10.1); CHLORIDE 112 mmol/L (98-107); CREATININE 0.92 mg/dL (0.55-1.02)
[2019-05-12] MEDS: PANTOPROZOLE 40MG TABLET PO SCH (06:13)
[2019-05-12 07:37] VITALS: BP 168/109
[2019-05-12] MEDS: HYDROXYCHLOROQUINE 200 MG TABLET PO SCH ×2 (07:47→07:48)
[2019-05-12] MEDS: METOPROLOL TARTRATE 25 MG TABLET PO SCH (07:48)
[2019-05-12] MEDS ORDERED: HYDROcodone/APAP 5/325 TABLET PO PRN ×2 (09:30→13:30)
[2019-05-12] MEDS: KETOROLAC 30 MG/1 ML IVPush PRN ×2 (10:10→15:53)
[2019-05-12 13:56] VITALS: BP 111/76
[2019-05-12] MEDS ORDERED: ONDA4TAB13 SL (14:26)
[2019-05-12] MEDS ORDERED: OMEP-110 PO (14:26)
[2019-05-12] MEDS ORDERED: Maalox/Hyoscyamine/Lidocaine PO (14:26)
[2019-05-12] MEDS ORDERED: PRED10TA PO (14:26)
[2019-05-12] MEDS ORDERED: WARF7.5T PO (14:26)
[2019-05-12] MEDS ORDERED: SIMV20TA PO (14:28)
[2019-05-12] MEDS ORDERED: WARFARIN 5 MG TABLET PO-COUM ONE (18:00)
== END 2019-05-12 17:33 | disposition home or self-care (01) | DRG 392 ==
LOC: ED 11:33 → EDIP 16:56 → 3NW 18:01
PROVIDERS: ADMIT Hospitalist; ATTEND Internal Medicine
PROC: 0T9B70Z Drainage of Bladder with Drainage Device, Via Natural or Artificial Opening (ICD-10-PCS; principal; 2019-05-09)
DX: K29.60 Other gastritis without bleeding (principal); M87.852 Other osteonecrosis, left femur; M87.851 Other osteonecrosis, right femur; D69.6 Thrombocytopenia, unspecified; D72.819 Decreased white blood cell count, unspecified; D73.5 Infarction of spleen; E11.9 Type 2 diabetes mellitus without complications; I10 Essential (primary) hypertension; M32.9 Systemic lupus erythematosus, unspecified; N83.202 Unspecified ovarian cyst, left side; R79.1 Abnormal coagulation profile; Z79.01 Long term (current) use of anticoagulants; Z79.52 Long term (current) use of systemic steroids; Z86.718 Personal history of other venous thrombosis and embolism; Z87.440 Personal history of urinary (tract) infections; Z88.8 Allergy status to other drugs, medicaments and biological substances
CPT/HCPCS: 36415; 74177; 80048; 80053; 81001; 83605; 84145; 84703; 85025; 85379; 85610; 87040; 87086; 96374; 96375; 96376; G0378; J1650; J1885; J2405; J2550; Q0162; Q9967; C9113; J2270; J2765; J2920; J7030; J7512; J7517

== ENCOUNTER 2019-05-24 12:00 | Outpatient (CLI) | payer OTHER ==
[~2019-05-24 12:00] MED LIST changes: +Maalox/Hyoscyamine/Lidocaine PO; +OMEP-110 PO; +ONDA4TAB13 SL
[2019-05-24 12:51] LABS: ALANINE AMINOTRANSFERASE 39 U/L (12-78); ALBUMIN 2.9 g/dL (3.4-5.0); ANION GAP 9 mmol/L (5-15); CALCIUM 8.6 mg/dL (8.5-10.1); CHLORIDE 111 mmol/L (98-107)
[2019-05-24 12:53] LABS: MEAN CORPUSCULAR HEMOGLOBIN 27.4 pg (27.0-34.8); MEAN CORPUSCULAR HGB CONC 32.7 g/dL (32.4-35.8); MEAN CORPUSCULAR VOLUME 83.8 fL (80-100); MEAN PLATELET VOLUME 8.4 fL (7.4-10.4); PLATELET COUNT 345 x10^3/uL (130-400); RED BLOOD COUNT 4.54 x10^6/uL (3.82-5.3); RED CELL DISTRIBUTION WIDTH 17.1 % (9.6-15.2)
[2019-05-24 13:01] LABS: ALKALINE PHOSPHATASE 106 U/L (45-117); BILIRUBIN,TOTAL 0.3 mg/dL (0.2-1.0); CREATININE 1.15 mg/dL (0.55-1.02); TOTAL PROTEIN 7.1 g/dL (6.4-8.2)
[2019-05-24 13:19] LABS: MICROSCOPIC INDICATED
[2019-05-24 13:25] LABS: HCT (SEDRATE) 38.1 % (34.6-47.8)
[2019-05-24 13:29] LABS: CREATININE,URINE RANDOM 42.8 mg/dL
[2019-05-24 13:37] LABS: MD YES
[2019-05-24 13:41] LABS: ANISOCYTOSIS 1+; BAND#(MANUAL) 0.02 x10^3/uL; BANDS%(MANUAL) 1 % (0-7); LYMPH#(MANUAL) 0.32 x10^3/uL (1-3.4); LYMPHS% (MANUAL) 14 % (22-44); MONOS#(MANUAL) 0.21 x10^3/uL (0.3-2.7); MONOS% (MANUAL) 9 % (2-9); SEG#(MANUAL) 1.75 x10^3/uL (1.8-6.8); SEGS% (MANUAL) 76 % (42-75)
[2019-05-24 13:42] LABS: <PLATELET ESTIMATE> ADEQUATE; <PLT MORPHOLOGY> NORMAL PLT MORPH
[2019-05-24 14:23] LABS: CULTURE INDICATED? YES
== END 2019-05-24 23:59 | disposition home or self-care (01) ==
LOC: LAB 12:00
PROVIDERS: ATTEND Internal Medicine
DX: M32.14 Glomerular disease in systemic lupus erythematosus (principal); Z79.899 Other long term (current) drug therapy
CPT/HCPCS: 36415; 80053; 81001; 82570; 84156; 85025; 85651; 86140; 86160; 86225; 87086

== ENCOUNTER 2019-06-17 16:55 | Inpatient (IN) | payer OTHER ==
[~2019-06-17] VITALS: Ht 165.1 cm; Wt 106.0 kg
[2019-06-20 06:28] VITALS: BP 132/88
== END 2019-06-20 09:44 | disposition home or self-care (01) | DRG 281 ==
LOC: ED 17:15 → EDIP 20:08 → 4WST 20:09 → 5SO 23:20 → DCLOUNGE 06-20 09:29
PROVIDERS: ADMIT Family Medicine; ATTEND Family Medicine
PROC: 4A023N7 Measurement of Cardiac Sampling and Pressure, Left Heart, Percutaneous Approach (ICD-10-PCS; principal; 2019-06-17)
PROC: B2111ZZ Fluoroscopy of Multiple Coronary Arteries using Low Osmolar Contrast (ICD-10-PCS; 2019-06-17)
PROC: B2151ZZ Fluoroscopy of Left Heart using Low Osmolar Contrast (ICD-10-PCS; 2019-06-17)
DX: I21.A1 Myocardial infarction type 2 (principal); D68.62 Lupus anticoagulant syndrome; J98.11 Atelectasis; J90 Pleural effusion, not elsewhere classified; M87.9 Osteonecrosis, unspecified; D73.5 Infarction of spleen; E11.9 Type 2 diabetes mellitus without complications; E78.1 Pure hyperglyceridemia; E78.5 Hyperlipidemia, unspecified; F12.90 Cannabis use, unspecified, uncomplicated; I51.4 Myocarditis, unspecified; M32.9 Systemic lupus erythematosus, unspecified; M60.9 Myositis, unspecified; G89.4 Chronic pain syndrome; E66.01 Morbid (severe) obesity due to excess calories; R31.29 Other microscopic hematuria; Z79.01 Long term (current) use of anticoagulants; Z79.52 Long term (current) use of systemic steroids; Z80.52 Family history of malignant neoplasm of bladder; Z82.0 Family history of epilepsy and other diseases of the nervous system; Z82.61 Family history of arthritis; Z86.718 Personal history of other venous thrombosis and embolism; Z87.440 Personal history of urinary (tract) infections; Z87.442 Personal history of urinary calculi; Z87.891 Personal history of nicotine dependence; Z68.38 Body mass index [BMI] 38.0-38.9, adult
CPT/HCPCS: 36415; 93458; 96374; 96375; 96376; 99285; J3490; 71275; 76770; 80048; 80053; 80061; 81001; 83036; 83690; 83735; 83880; 84100; 84443; 84484; 84703; 85025; 85520; 85610; 93005; 93306; 99156; C1769; C1894; G0378; J0583; J1170; J1644; J1650; J1885; J2250; J2405; J3010; J3475; Q9967; J2270; J7030; J7120; J7512; J7517